=== PATIENT | female | born 1935 | race Caucasian/White ===

== ENCOUNTER 2016-11-07 12:35 | Emergency (ER) | payer OTHER, BC ==
[~2016-11-07] VITALS: Ht 165.1 cm; Wt 59.0 kg
[~2016-11-07 12:35] MED LIST: ASPIR 8181 MG PO; BIOTIN1 M1 PO; CRESTOR10 MG PO; ECEE PLUS TABL1 EACH PO; EVISTA60 MG PO; FISH OIL 1,001000 M2 PO; FUROSEMIDE 20 M20 MG PO; LEVOTHYROXINE 0.1 MG PO; VITAMIN D1000 UNI1 PO; XARELTO20 MG PO
[2016-11-07 14:55] VITALS: BP 124/68
== END 2016-11-07 14:56 | disposition home or self-care (01) ==
LOC: ER 12:35
DX: S51.012A Laceration without foreign body of left elbow, initial encounter (principal); S70.12XA Contusion of left thigh, initial encounter; I10 Essential (primary) hypertension; E78.00 Pure hypercholesterolemia, unspecified; Z88.0 Allergy status to penicillin; Z88.8 Allergy status to other drugs, medicaments and biological substances; W20.8XXA Other cause of strike by thrown, projected or falling object, initial encounter; Y93.89 Activity, other specified; Y92.89 Other specified places as the place of occurrence of the external cause; Y99.9 Unspecified external cause status

== ENCOUNTER 2018-07-22 07:59 | Emergency (ER) | payer OTHER, BC ==
[~2018-07-22] VITALS: Ht 162.6 cm; Wt 74.8 kg
[2018-07-22 08:12] LABS: HEMOGLOBIN 13.9 gm/dL (12.0-15.0); MCH 32.6 pg (26.0-34.0); MCHC 34.8 g/dL (28.0-37.0); MCV 93.7 fL (80.0-100.0); RBC 4.27 mil/uL (4.20-5.00); RDW 13.6 % (10.5-14.5); WBC 8.4 thou/uL (4.0-11.0)
[2018-07-22 08:20] LABS: CALCIUM 9.2 mg/dL (8.5-10.1); CREATININE 0.8 mg/dL (0.6-1.0); POTASSIUM 3.5 mmol/L (3.5-5.1)
[2018-07-22 08:27] LABS: APTT 45.3 Seconds (24.5-32.8); INR 1.4; PROTIME 15.1 Seconds (9.3-11.4)
[2018-07-22] MEDS ORDERED: ULTRAM 50MG TAB50 MG PO (10:41)
[2018-07-22] MEDS ORDERED: KEFLEX500 M1 PO (10:41)
[2018-07-22 10:42] VITALS: BP 130/64
== END 2018-07-22 10:55 | disposition home or self-care (01) ==
LOC: ER 07:59
PROVIDERS: Emergency Medicine
DX: S02.31XA Fracture of orbital floor, right side, initial encounter for closed fracture (principal); S01.512A Laceration without foreign body of oral cavity, initial encounter; Z79.01 Long term (current) use of anticoagulants; I10 Essential (primary) hypertension; Z88.8 Allergy status to other drugs, medicaments and biological substances; Z88.0 Allergy status to penicillin; W18.39XA Other fall on same level, initial encounter; Y92.89 Other specified places as the place of occurrence of the external cause; Y93.89 Activity, other specified; Y99.8 Other external cause status

== ENCOUNTER 2018-08-08 19:12 | Emergency (ER) | payer OTHER, BC ==
[~2018-08-08] VITALS: Ht 162.6 cm; Wt 74.8 kg
[~2018-08-08 19:12] MED LIST changes: +KEFLEX500 M1 PO; +ULTRAM 50MG TAB50 MG PO
[2018-08-08 21:33] VITALS: BP 131/47
== END 2018-08-08 21:37 | disposition short-term general hospital (02) ==
LOC: ER 19:12
DX: S06.6X0A Traumatic subarachnoid hemorrhage without loss of consciousness, initial encounter (principal); S02.2XXA Fracture of nasal bones, initial encounter for closed fracture; Z79.01 Long term (current) use of anticoagulants; I10 Essential (primary) hypertension; E78.00 Pure hypercholesterolemia, unspecified; Z98.890 Other specified postprocedural states; Z88.8 Allergy status to other drugs, medicaments and biological substances; Z88.0 Allergy status to penicillin; W01.0XXA Fall on same level from slipping, tripping and stumbling without subsequent striking against object, initial encounter; Y92.89 Other specified places as the place of occurrence of the external cause; Y93.89 Activity, other specified; Y99.8 Other external cause status

== ENCOUNTER 2019-10-03 11:24 | Emergency (ER) | payer OTHER, BC ==
[~2019-10-03] VITALS: Ht 162.6 cm; Wt 79.4 kg
[2019-10-03 12:48] LABS: ABSOLUTE NEUTROPHILS 6.3 thou/uL (1.4-8.2); EOSINOPHILS 0.5 % (0.0-3.0); HEMATOCRIT 39.9 % (37.0-47.0); LYMPHOCYTES 19.5 % (24.0-44.0); MCH 31.1 pg (26.0-34.0); MCHC 32.7 g/dL (28.0-37.0); MONOCYTES 5.9 % (1.0-8.0); PLATELET COUNT 205 thou/uL (150-400); POLYS 73.1 % (36.0-66.0); WBC 8.6 thou/uL (4.0-11.0)
[2019-10-03 12:54] LABS: ANION GAP 7 mmol/L (7-16); BUN 8 mg/dL (7-18); CALCIUM 8.5 mg/dL (8.5-10.1); CHLORIDE 101 mmol/L (98-107); CO2 31 mmol/L (21-32); CREATININE 0.9 mg/dL (0.6-1.0); GLUCOSE 146 mg/dL (74-106); POTASSIUM 3.8 mmol/L (3.5-5.1); SODIUM 139 mmol/L (136-145)
[2019-10-03 13:03] LABS: TROPONIN-I <0.06 ng/mL (<0.06)
[2019-10-03 13:46] LABS: URINE BILIRUBIN NEGATIVE (Negative); URINE BLOOD NEGATIVE (Negative); URINE CLARITY CLEAR; URINE COLOR YELLOW; URINE GLUCOSE-RANDOM* NEGATIVE (Negative); URINE KETONES NEGATIVE (Negative); URINE LEUKOCYTES-REFLEX NEGATIVE (Negative); URINE NITRITE-REFLEX NEGATIVE (Negative); URINE PROTEIN (DIPSTICK) NEGATIVE (Negative)
--- NOTE | 2019-10-03 15:26 | EKG ---
[facility] [place] [address] ELECTROCARDIOGRAM REPORT Name: ИРИНА VELAZQUEZ Room #: REG [facility].#: [id number] Admission: 10/03/19 Attend Phys: Discharge: Date of : 39 Report #: [id number] THIS REPORT FOR: cc: Paul Lomeli MD, John L. MD Couchonnal,Shabbir Gamboa MD ~ THIS REPORT FOR: //name// [facility] ED Test Date: 2019-10-03 Test Time: 12:31:06 Pat Name: ИРИНА VELAZQUEZ Department: Room: Gender: F Construction Management Assistant: [facility] : 1935 Requested By: Ellen Jeffrey Order Number: [id number] MD: Shabbir Fletcher Measurements Intervals [place] Rate: 92 P: MO: QRS: -55 QRSD: 103 T: 46 QT: 422 QTc: 523 Interpretive Statements Atrial fibrillation Left anterior fascicular block Abnormal R-wave progression, late transition Prolonged QT interval No previous ECG available for comparison Electronically Signed On 10-03-2019 15:25:12 MEDICARE SPECIALIST by Shabbir Fletcher [email or web address] <ELECTRONICALLY SIGNED> By: Shabbir Fletcher MD 10/03/19 1525 1231 1231 Shabbir Fletcher MD /EPI
[2019-10-03] MEDS ORDERED: LIDODERM1 EACH TOP (15:51)
[2019-10-03 16:12] VITALS: BP 173/83
== END 2019-10-03 16:12 | disposition home or self-care (01) ==
LOC: ER 11:24
PROVIDERS: Nurse Practitioner Family
DX: S29.012A Strain of muscle and tendon of back wall of thorax, initial encounter (principal); M17.11 Unilateral primary osteoarthritis, right knee; F03.90 Unspecified dementia, unspecified severity, without behavioral disturbance, psychotic disturbance, mood disturbance, and anxiety; I10 Essential (primary) hypertension; E78.00 Pure hypercholesterolemia, unspecified; I48.91 Unspecified atrial fibrillation; Z98.890 Other specified postprocedural states; Z88.0 Allergy status to penicillin; Z88.8 Allergy status to other drugs, medicaments and biological substances; W18.39XA Other fall on same level, initial encounter; Y92.89 Other specified places as the place of occurrence of the external cause; Y93.89 Activity, other specified; Y99.8 Other external cause status